=== PATIENT | male | born 1945 | race Hispanic/Latino ===

== ENCOUNTER → 2017-11-21 | Outpatient (CLI) | payer OTHER, MEDICARE ==
[~2017-11-21] MED LIST: AMOX-429 PO; CALC3.7S NS; DENO60DI SQ; ESCI10TA PO; FOLI1TAB15 PO; HYDR-3971 PO; IBUP-2077 PO; LACT1CAP58 PO; LANS30CA53 PO; METO25TA6 PO; REGADENOSON 0.4 MG/5 ML PF SYG IVP SCH; SIMV10TA6 PO; TAMS-1 PO
== END | disposition home or self-care (01) ==
LOC: SHCH 08:27
PROVIDERS: ATTEND Internal Medicine Cardiovascular Disease
DX: R06.09 Other forms of dyspnea (principal); R42 Dizziness and giddiness; R10.9 Unspecified abdominal pain
CPT/HCPCS: 78452; 93017; 96374; A9500 ×2; J2785

== ENCOUNTER → 2018-02-20 | Outpatient (CLI) | payer OTHER, MEDICARE ==
[~2018-02-20] MED LIST changes: -REGADENOSON 0.4 MG/5 ML PF SYG IVP SCH
== END | disposition home or self-care (01) ==
LOC: RAH 12:11
PROVIDERS: ATTEND Internal Medicine Critical Care Medicine
DX: M25.511 Pain in right shoulder (principal)
CPT/HCPCS: 73030

== ENCOUNTER → 2018-06-25 | Outpatient (CLI) | payer OTHER, MEDICARE | END | disposition home or self-care (01) | LOC: RAH 13:51 | PROVIDERS: ATTEND Pain Medicine Interventional Pain Medicine | DX: M47.22 Other spondylosis with radiculopathy, cervical region (principal) | CPT/HCPCS: 72040 ==

== ENCOUNTER → 2018-08-03 | Outpatient (CLI) | payer OTHER, MEDICARE | END | disposition home or self-care (01) | LOC: RAH 13:07 | PROVIDERS: ATTEND Pain Medicine Interventional Pain Medicine | DX: M47.894 Other spondylosis, thoracic region (principal); M47.896 Other spondylosis, lumbar region | CPT/HCPCS: 72072; 72100 ==

== ENCOUNTER → 2018-09-03 | Outpatient (CLI) | payer OTHER, MEDICARE | END | disposition home or self-care (01) | LOC: RAH 12:57 | PROVIDERS: ATTEND Internal Medicine Cardiovascular Disease | DX: I10 Essential (primary) hypertension (principal); K76.0 Fatty (change of) liver, not elsewhere classified; K57.30 Diverticulosis of large intestine without perforation or abscess without bleeding; I70.0 Atherosclerosis of aorta; I25.10 Atherosclerotic heart disease of native coronary artery without angina pectoris; Z90.49 Acquired absence of other specified parts of digestive tract | CPT/HCPCS: 71250 ==

== ENCOUNTER → 2018-09-24 | Outpatient (CLI) | payer OTHER, MEDICARE ==
[~2018-09-24] MED LIST changes: +REGADENOSON 0.4 MG/5 ML PF SYG IVP SCH
== END | disposition home or self-care (01) ==
LOC: SHCH 08:52
PROVIDERS: ATTEND Internal Medicine Cardiovascular Disease
DX: I10 Essential (primary) hypertension (principal)
CPT/HCPCS: 78452; 93017; 96374; A9500 ×2; J2785

== ENCOUNTER 2019-03-24 23:34 | Inpatient (IN) | payer OTHER, MEDICARE | END 2019-03-29 14:00 | LOC: EDH 23:34 → EDHIP 03-25 01:31 → 2AH 03-25 02:43 | DX: I63.519 Cerebral infarction due to unspecified occlusion or stenosis of unspecified middle cerebral artery (principal); G81.91 Hemiplegia, unspecified affecting right dominant side; F41.8 Other specified anxiety disorders; I10 Essential (primary) hypertension; R29.810 Facial weakness; I65.22 Occlusion and stenosis of left carotid artery; N40.0 Benign prostatic hyperplasia without lower urinary tract symptoms ==

== ENCOUNTER 2019-04-29 14:25 | Observation (INO) | payer OTHER, MEDICARE ==
[~2019-04-29] VITALS: Ht 170.2 cm; Wt 80.1 kg
[~2019-04-29 14:25] MED LIST changes: -AMOX-429 PO; -CALC3.7S NS; -DENO60DI SQ; -ESCI10TA PO; +ESCI20TA36 PO; -FOLI1TAB15 PO; +GABA300S PO; -HYDR-3971 PO; -IBUP-2077 PO; -LACT1CAP58 PO; -LANS30CA53 PO; +LEVO5TAB13 PO; +LOSA1TAB42 PO; +MELO-106 PO; +METO-391 PO; -METO25TA6 PO; +OMEP40CA37 PO; +OXYC10TA48 PO; -REGADENOSON 0.4 MG/5 ML PF SYG IVP SCH; +ZOLP5TAB8 PO
[2019-04-29 14:49] LABS: BASOPHILS % (AUTO) 0.7 % (0.0-5.0); EOSINOPHILS % (AUTO) 38.4 % (0.0-8.0); LYMPHOCYTES % (AUTO) 9.3 % (21.0-51.0); MEAN CORPUSCULAR HEMOGLOBIN 31.5 pg (27.0-33.0); MEAN CORPUSCULAR HGB CONC 32.7 g/dL (32.0-36.0); MEAN CORPUSCULAR VOLUME 96.4 fL (79-99); MONOCYTES % (AUTO) 6.8 % (3.0-13.0); NEUTROPHILS % (AUTO) 44.8 % (40.0-77.0); PLATELET COUNT (AUTO) 298 K/uL (130-400); RED BLOOD CELL COUNT(AUTO) 4.15 MIL/uL (4.50-6.20); RED CELL DISTRIBUTION WIDTH 13.3 % (11.0-15.5); WHITE BLOOD COUNT (AUTO) 12.3 K/uL (4.8-10.8)
[2019-04-29 15:04] LABS: INR 0.97 (0.85-1.15); PARTIAL THROMBOPLASTIN TIME 28.9 SEC (26.3-35.5); PROTHROMBIN TIME 10.2 SEC (9.6-11.6)
[2019-04-29] MEDS ORDERED: SODIUM CHLORIDE 0.9% 1000ML 1,000 ML IV ONE ×2 (15:42→16:43)
[2019-04-29] MEDS ORDERED: IOHEXOL-350 75 ML VIAL IV ONE (15:47)
[2019-04-29 16:00] LABS: CREATININE 1.8 mg/dL (0.5-1.5); POTASSIUM 4.3 mmol/L (3.5-5.1)
[2019-04-29 16:01] LABS: APPEARANCE,URINE Clear (CLEAR); BILIRUBIN,URINE Negative (NEGATIVE); COLOR,URINE Yellow (YELLOW); GLUCOSE, URINE (UA) Negative (NEGATIVE); KETONES,URINE Negative (NEGATIVE); LEUKOCYTE ESTERASE ,URINE Negative (NEGATIVE); NITRATE,URINE Negative (NEGATIVE); OCCULT BLOOD,URINE Negative (NEGATIVE); PROTEIN,URINE Negative (NEGATIVE)
[2019-04-29 16:05] LABS: ALBUMIN 3.4 g/dL (3.5-5.0); BILIRUBIN,TOTAL 0.4 mg/dL (0.2-1.0); TOTAL PROTEIN, SERUM 7.5 g/dL (6.0-8.3)
[2019-04-29 16:08] LABS: AMPHET/METH SCREEN,URINE NEGATIVE (NEGATIVE); BARBITURATE SCREEN, URINE NEGATIVE (NEGATIVE); BENZODIAZEPINES SCREEN,URINE NEGATIVE (NEGATIVE); CANNABINOID SCREEN,URINE NEGATIVE (NEGATIVE); COCAINE SCREEN,URINE NEGATIVE (NEGATIVE); OPIATE SCREEN,URINE NEGATIVE (NEGATIVE); PHENCYCLIDINE SCREEN,URINE NEGATIVE (NEGATIVE)
[2019-04-29] MEDS ORDERED: ASPIRIN 300 MG SUPPOSITORY PR ONE (20:15)
[2019-04-29] MEDS ORDERED: ACETAMINOPHEN 650 MG SUPPOSITORY RC PRN (20:15)
[2019-04-29] MEDS ORDERED: ENOXAPARIN SODIUM 1 MG/KG SQ SCH (20:15)
[2019-04-29] MEDS ORDERED: ONDANSETRON HCL 4 MG/2 ML VIAL IVP PRN (20:15)
[2019-04-29 23:00] VITALS: BP 143/87
--- NOTE | 2019-04-29 23:00 | NUR ---
received report from ER Nurse ,pt only give @L NS in ER .no other medicine was given.
[2019-04-30] MEDS ORDERED: AEC81 PO (00:05)
[2019-04-30] MEDS ORDERED: METO25TA6 PO (00:05)
[2019-04-30] MEDS ORDERED: LEVO25TA54 PO (00:05)
[2019-04-30] MEDS ORDERED: GABA-531 PO (00:05)
[2019-04-30] MEDS ORDERED: CLOP75TA14 PO (00:05)
[2019-04-30] MEDS ORDERED: ATORVASTATIN PO (00:05)
[2019-04-30] MEDS ORDERED: ASPIRIN 300 MG SUPPOSITORY PR ONE (00:57)
[2019-04-30] MEDS: ENOXAPARIN SODIUM 80 MG/0.8 ML SQ SCH ×2 (01:13→22:57)
[2019-04-30] MEDS: SODIUM CHLORIDE 0.9% 1000ML 1,000 ML IV SCH ×2 (01:15→06:15)
[2019-04-30 03:27] VITALS: BP 155/92
[2019-04-30 07:30] VITALS: BP 154/83
[2019-04-30] MEDS: LEVOTHYROXINE 25 MCG TABLET PO SCH (08:11)
[2019-04-30] MEDS: PANTOPRAZOLE SODIUM 40 MG TABLET.DR PO SCH (08:14)
[2019-04-30] MEDS: METOPROLOL TARTRATE 25 MG TAB PO SCH ×2 (09:00→21:20)
[2019-04-30] MEDS: HYDROCHLOROTHIAZIDE PO SCH (09:00)
[2019-04-30] MEDS ORDERED: FAMOTIDINE/PF 20 MG/2 ML VIAL IV SCH (09:00)
[2019-04-30] MEDS: LOSARTAN PO SCH (09:00)
[2019-04-30] MEDS: [UNRECOGNIZED DRUG - OTHER] PO SCH (09:00)
[2019-04-30] MEDS: PANTOPRAZOLE 40 MG/VIAL IVP SCH (09:39)
[2019-04-30 11:37] VITALS: BP 158/87
--- NOTE | 2019-04-30 12:32 | NUR ---
DCP - SNF Sw met with pt, Martha Redd and daughter. Family reports pt was dc from Rehab on 04/12. Pt was dc from here and sent to rehab till 04/19, but was discharged early, per family. Pt was sent home and continued his daily provider services with Brittani and for PT OT ST. 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 [place]ily [place]. Pt is too much care for at home, pt needing / care. Pt has walker and w/c at home and uses [facility]. Family to notify CM with decision on SNF. CM to f/u and assist as needed
--- NOTE | 2019-04-30 12:42 | NUR ---
DYSPHAGIA EVAL COMPLETE. ORAL DYSPHAGIA. RECOMMEND MECHANICAL SOFT/CHOPPED, THIN LIQUIDS; PILLS WHOLE WITH LIQUIDS. RECOMMENDATIONS: DYSPHAGIA THERAPY 3-5X WEEK TO INCREASE ORAL MOTOR STRENGTH AND ROM TO IMPROVE ORAL PHASE OF SWALLOW FUNCTION: LTG#1: Pt WILL TOLERATE LEAST RESTRICTIVE DIET TO MEET NUTRITION/HYDRATION WITH NO S/S OF ASPIRATION. LTG#2: SKILLED EDUCATION Pt/FAMILY/STAFF STG#1: Pt WILL PARTICIPATE IN ORAL MOTOR EXERCISES WITH 80% ACCURACY. STG#2: Pt WILL PARTICIPATE IN THERAPEUTIC TRIALS OF REGULAR TEXTURE WITH NO RESIDUE IN ORAL CAVITY. STG#3: PT WILL BE ABLE TO PARTICIPATE IN MBSS AFTER 2-4 WEEKS OF THERAPEUTIC INTERVENTION. STG#4: SKILLED EDUCATION Pt/FAMILY/STAFF. Addendum: 04/30/19 at 1245 by ESTEVAN GREENWOOD, [facility] Amended: Links added.
--- NOTE | 2019-04-30 13:01 | NUR ---
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 RECOMMENDATIONS: 1. SKILLED SPEECH THERAPY RECOMMENDED TARGETING COGNITIVE-LINGUISTIC GOALS 3-5XWK: *LTG#1: Pt WILL INCREASE COGNITIVE-LINGUISTIC ABILITIES TO PARTICIPATE IN ADLs WITH MODERATE ASSISTANCE. *STG#1: Pt WILL BE AAOX4 INDEPENDENTLY. *STG#2: Pt WILL FOLLOW 2 STEP COMMANDS WITH 80% ACCURACY *LTG#2: Pt WILL INCREASE EXPRESSIVE LANGUAGE SKILLS TO EXPRESS WANTS AND NEEDS INDEPENDENTLY. *STG#3: Pt WILL LABEL COMMON OBJECTS WITH 80% ACCURACY. *STG#4: Pt WILL STATE OBJECT FUNCTION WITH 80% ACCURACY. *STG#5: Pt WILL FORMULATE SHORT PHRASES WHEN PROVIDED WITH 2 WORDS WITH 80% ACCURACY. *STG#6: Pt WILL INDEPENDENTLY STATE IDENTIFYING INFORMATION WITH 100% ACCURACY. *STG#7: Pt WILL COMMUNICATE IN PHRASES IN 8/10 TRIALS. Addendum: 04/30/19 at 1305 by ESTEVAN GREENWOOD [facility] ST Amended: Links added.
[2019-04-30] MEDS: GABAPENTIN 300 MG CAPSULE PO SCH ×3 (14:00→21:20)
[2019-04-30] MEDS: CITALOPRAM 20 MG TABLET PO SCH (15:04)
[2019-04-30] MEDS: TAMSULOSIN HCL 0.4 MG CAP.ER.24H PO SCH (15:04)
[2019-04-30] MEDS: ASPIRIN 81 MG EC TAB PO SCH (15:04)
--- NOTE | 2019-04-30 16:26 | NUR ---
DC PLAN PATIENT AND FAMILY SPOKE TO DR. HICKMAN. PER MD SEND REFERRAL TO SNF FOR PT AND OT. SALVADOR SIGNED INFO SENT TO [facility]. SPOKE TO AMANDO SAID SHE WILL BE BY IN A BIT SENT REFERRAL TO INSURANCE WELL. PATIENT WILL GO VIA FACILITY VAN. Addendum: 04/30/19 at 1629 by KATHIE MITCHELL RN CM Amended: Links added.
[2019-04-30 16:32] VITALS: BP 145/87
[2019-04-30 19:00] VITALS: BP 143/88
[2019-04-30] MEDS: ATORVASTATIN CALCIUM 40 MG TABLET PO SCH (21:20)
[2019-04-30 23:00] VITALS: BP 142/86
[2019-05-01 03:00] VITALS: BP 153/92
[2019-05-01 04:55] LABS: BASOPHILS % (AUTO) 0.7 % (0.0-5.0); EOSINOPHILS % (AUTO) 41.5 % (0.0-8.0); HEMATOCRIT 37.1 % (42-54); LYMPHOCYTES % (AUTO) 13.4 % (21.0-51.0); MEAN CORPUSCULAR HGB CONC 33.5 g/dL (32.0-36.0); MEAN CORPUSCULAR VOLUME 95.6 fL (79-99); MONOCYTES % (AUTO) 6.3 % (3.0-13.0); NEUTROPHILS % (AUTO) 38.1 % (40.0-77.0); NUCLEATED RED BLOOD CELLS 0.1 % (0.0-0.19); PLATELET COUNT (AUTO) 277 K/uL (130-400); RED BLOOD CELL COUNT(AUTO) 3.88 MIL/uL (4.50-6.20); RED CELL DISTRIBUTION WIDTH 13.2 % (11.0-15.5); WHITE BLOOD COUNT (AUTO) 10.5 K/uL (4.8-10.8)
[2019-05-01 05:01] LABS: CREATININE 1.2 mg/dL (0.5-1.5); MAGNESIUM 1.8 mg/dL (1.80-2.40); PHOSPHORUS 3.2 mg/dL (2.5-4.9); POTASSIUM 4.1 mmol/L (3.5-5.1)
[2019-05-01] MEDS: LEVOTHYROXINE 25 MCG TABLET PO SCH (06:28)
[2019-05-01] MEDS: PANTOPRAZOLE SODIUM 40 MG TABLET.DR PO SCH (06:30)
[2019-05-01] MEDS ORDERED: MAGNESIUM 2GM PREMIX 50ML 50 ML IV PRN (06:45)
[2019-05-01 07:20] VITALS: BP 166/88
[2019-05-01] MEDS: GABAPENTIN 300 MG CAPSULE PO SCH ×3 (07:32→20:06)
[2019-05-01] MEDS: TAMSULOSIN HCL 0.4 MG CAP.ER.24H PO SCH (07:32)
[2019-05-01] MEDS: ASPIRIN 81 MG EC TAB PO SCH (07:32)
[2019-05-01] MEDS: METOPROLOL TARTRATE 25 MG TAB PO SCH ×2 (07:32→20:06)
[2019-05-01] MEDS: CITALOPRAM 20 MG TABLET PO SCH (07:33)
[2019-05-01] MEDS: LOSARTAN PO SCH (07:33)
[2019-05-01] MEDS: HYDROCHLOROTHIAZIDE PO SCH (07:33)
[2019-05-01] MEDS: PANTOPRAZOLE 40 MG/VIAL IVP SCH (07:33)
[2019-05-01] MEDS: [UNRECOGNIZED DRUG - OTHER] PO SCH (07:33)
--- NOTE | 2019-05-01 08:00 | NUR ---
ASSESSMENT PT IS AAOX4 DENIES CP DENIES SOB DENIES NV. NO VISIBLE SIGNS OF DISTRESS NOTED. SITTING UPRIGHT IN BED, NOTED RIGHT SIDE WEAKNESS AND FACIAL DROP. PATIENT IS ABLE TO TAKE MEDS WITH WATER, NO CHOKING NO GAGGING NOTED. CALL LIGHT WITHIN REACH.
[2019-05-01] MEDS ORDERED: ENOXAPARIN SODIUM 80 MG/0.8 ML SQ SCH (09:00)
--- NOTE | 2019-05-01 10:40 | NUR ---
DR BROWN ROUNDED SAW PATIENT, PENDING 2D ECHO.
--- NOTE | 2019-05-01 10:47 | NUR ---
DC PLAN SPOKE TO INSURANCE AND TO FACILITY. PENDING INSURANCE AUTH FOR PLACEMENT. Addendum: 05/01/19 at 1048 by KATHIE MITCHELL RN CM Amended: Links added.
[2019-05-01 11:20] VITALS: BP 133/73
--- NOTE | 2019-05-01 12:30 | NUR ---
SPEECH THERAPY TARGETING SPEECH AND SWALLOWING GOALS COMPLETED. S: Pt COOPERATIVE AT THE TIME OF THE SESSION. AT BEDSIDE AND REPORTS PT HAS BEEN VERBALIZING MORE TODAY. O: Pt COMPLETED GOALS TARGETING APHASIA AND DYSPHAGIA. *Pt WILL LABEL COMMON OBJECTS WITH 80% ACCURACY: 60% ACCURACY GIVEN PHONEMIC CUES *Pt WILL IDENTIFY COMMON OBJECTS FROM A FIELD OF 4 WITH 80% ACCURACY: 80% ACCURACY *Pt WILL VERBALIZE IN PHRASES WITH 80% ACCURACY: VERBALIZING IN 1 WORD UTTERANCES *Pt WILL COMPLETE SHORT PHRASE WHEN PROVIDING HER WITH 2 WORDS: 70% ACCURACY. *Pt WILL COMPLETE ORAL MOTOR EXERCISES AND INCREASE ROTARY MOTION DURING MASTICATION: 80% ACCURACY *Pt PARTICIPATED IN THERAPEUTIC TRIALS OF SOLIDS WITH MILD ORAL RESIDUE IN TONGUE BODY AND RIGHT LATERAL SULCUS. MAX CUES PROVIDED TO CLEAR ORAL CAVITY. A: Pt WITH IMPROVED VERBAL OUTPUT. PLEASE NOTE THAT CUES WERE REQUIRED FOR INITIATION OF VERBALIZATION. P: RECOMMEND CONTINUED SPEECH THERAPY TARGETING SPEECH AND SWALLOWING GOALS. Pt WITH POSITIVE RESPONSE TO THERAPY. FINANCIAL SOLUTIONS ADVISOR WILL CONTINUE TO FOLLOW Pt. Addendum: 05/02/19 at 0938 by ESTEVAN GREENWOOD [facility] Amended: Links added.
--- NOTE | 2019-05-01 13:36 | NUR ---
RD Notification Pt admitted for CVA (OBS). Pt tolerating current diet with no report of GI distress and Good PO intake (100%). Rec to continue Soft, Finely chopped diet. RN with no nutrition concerns. Pt LBM 04/29/19. Pt monitored labs: Ca 7.3, Alb 3.4. RD to continue to monitor. Please notify RD as nutritional concerns arise. Thank you. Addendum: 05/01/19 at [address] Amended: Links added.
--- NOTE | 2019-05-01 14:59 | NUR ---
2D ECHO AT BEDSIDE
--- NOTE | 2019-05-01 15:05 | NUR ---
[place] [facility] CALLED 1421 SAID PATIENT ACCEPTED. LET NURSE KNOW SAID PENDING ECHO TO BE READ FOR DR. BROWN TO MAKE RECOMMENDATIONS. PATIENT WILL GO VIA FACILITY VAN. Addendum: 05/01/19 at 1514 by KATHIE MITCHELL RN CM Amended: Links added.
[2019-05-01 15:20] VITALS: BP 131/77
--- NOTE | 2019-05-01 17:50 | NUR ---
STATUS SITTING UPRIGHT IN BED. NO VISIBLE SIGNS OF DISTRESS NOTED. FAMILY AT BEDSIDE, CALL LIGHT WITHIN REACH.
[2019-05-01 18:59] VITALS: BP 148/95
[2019-05-01] MEDS: ATORVASTATIN CALCIUM 40 MG TABLET PO SCH (20:06)
[2019-05-01 23:04] VITALS: BP 144/80
--- NOTE | 2019-05-02 | NUR ---
PT HAS BEEN STABLE. WAS GIVEN MOTRIN VIA NG TUBE DUE TO LOW GRAD FEVER WELL SIGNS OF NON VERBAL PAIN. TEMP DOWN TO 98.2. PT WAS GIVEN MEDICATIONS VIA NG TUBE. CHECKED FOR PATENCY WITH AIR. GIVEN WATER FLUSH. CONTINUES ON IV ANTIBIOTICS IV PATENT. NASAL CANNULA IN PLACE. PT IS BEDREST. UNABLE TO FOLLOW COMMANDS. INCOMPREHENSIBLE SOUNDS. NOT RESPONSIVE TO COMMANDS. Addendum: 05/02/19 at 0406 by CHAITANYA COTE RN RN WRONG PT. INCORRECT ENTRY.
--- NOTE | 2019-05-02 01:00 | NUR ---
PT CONTINUES WITH RIGHT SIDED WEAKNESS. NOT ABLE TO LIFT RIGHT UPPER ARM. NOT ABLE TO SQUEEZE FINGER COMPLETELY. MINIMAL MOVEMENT. ABLE TO LIFT RIGHT LEG AND MOVE AROUND. NOT ABLE TO PUSH ARM OFF WITH FOOT, WEAKNESS NOTED. LEFT SIDE IS STRONG.
[2019-05-02 03:11] VITALS: BP 149/77
[2019-05-02] MEDS: LEVOTHYROXINE 25 MCG TABLET PO SCH (05:48)
[2019-05-02] MEDS: PANTOPRAZOLE SODIUM 40 MG TABLET.DR PO SCH (05:50)
[2019-05-02] MEDS: PANTOPRAZOLE 40 MG/VIAL IVP SCH (06:49)
--- NOTE | 2019-05-02 07:10 | NUR ---
ASSESSMENT PT IS AAOX4 DENIES CP DENIES SOB DENIES NV. NO VISIBLE SIGNS OF DISTRESS NOTED. SITTING UPRIGHT IN BED, HOB UP AT 40 DEGREES. NOTED RIGHT SIDE WEAKNESS AND SOME FACIAL DROOP. CALL LIGHT WITHIN REACH.
[2019-05-02 07:20] VITALS: BP 162/72
[2019-05-02] MEDS: GABAPENTIN 300 MG CAPSULE PO SCH (07:47)
[2019-05-02] MEDS: HYDROCHLOROTHIAZIDE PO SCH (07:47)
[2019-05-02] MEDS: [UNRECOGNIZED DRUG - OTHER] PO SCH (07:47)
[2019-05-02] MEDS: LOSARTAN PO SCH (07:47)
[2019-05-02] MEDS: CITALOPRAM 20 MG TABLET PO SCH (07:47)
[2019-05-02] MEDS: METOPROLOL TARTRATE 25 MG TAB PO SCH (07:47)
[2019-05-02] MEDS: TAMSULOSIN HCL 0.4 MG CAP.ER.24H PO SCH (07:47)
[2019-05-02] MEDS: ASPIRIN 81 MG EC TAB PO SCH (07:47)
[2019-05-02] MEDS ORDERED: ENOXAPARIN SODIUM 40 MG/0.4 ML SYRINGE SQ SCH (09:00)
[2019-05-02 11:10] VITALS: BP 113/63
--- NOTE | 2019-05-02 12:00 | NUR ---
OK TO DC TO REHAB PER DR BROWN AND BENCHMARK
--- NOTE | 2019-05-02 13:27 | NUR ---
DISCHARGE REPORT GIVEN TO AMANDO BUTCHER AT [facility]
--- NOTE | 2019-05-02 15:15 | NUR ---
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
--- NOTE | 2019-05-02 15:26 | NUR ---
TRANSPORT PICKED UP PATIENT FROM [facility]. ALL BELONGINGS TAKEN, DC PACKET GIVEN TO RESPIRATORY THERAPIST.
[2019-05-03] MEDS ORDERED: CLOPIDOGREL BISULFATE 75 MG TAB PO SCH (09:00)
== END 2019-05-02 16:06 ==
LOC: EDH 14:25 → INTOOBSV 19:30 → EDHIP 19:30 → 2AH 22:48
PROVIDERS: ADMIT Internal Medicine Pulmonary Disease; ATTEND Internal Medicine Pulmonary Disease
DX: I63.9 Cerebral infarction, unspecified (principal); E03.9 Hypothyroidism, unspecified; E78.5 Hyperlipidemia, unspecified; I10 Essential (primary) hypertension; R19.7 Diarrhea, unspecified; G51.0 Bell's palsy; I65.29 Occlusion and stenosis of unspecified carotid artery; R41.841 Cognitive communication deficit; R29.818 Other symptoms and signs involving the nervous system; I69.351 Hemiplegia and hemiparesis following cerebral infarction affecting right dominant side; L89.90 Pressure ulcer of unspecified site, unspecified stage; R29.709 NIHSS score 9; F19.90 Other psychoactive substance use, unspecified, uncomplicated; Z79.02 Long term (current) use of antithrombotics/antiplatelets; Z79.82 Long term (current) use of aspirin; Z79.890 Hormone replacement therapy; Z79.899 Other long term (current) drug therapy
CPT/HCPCS: 36415 ×2; 70450; 70544; 70547; 70551; 71045; 80048; 80053; 80305; 81003; 82550; 82948 ×3; 83721; 83735; 84100; 84484; 85025 ×2; 85610; 85730; 92507; 92522; 92610; 93005; 93306; 93880; 96361 ×2; 96372 ×3; 96374; 97039 ×3; 97116; 97161; 97530 ×2; 99291; C9113 ×3; G0378 ×69; G8979; G8981; G8982; G8983; J1650 ×3; J7030 ×3; Q9967; 70496; 70498; 96360